=== PATIENT | male | born 1980 | race African-American/Black ===

== ENCOUNTER 2022-11-15 15:33 | Emergency (ER) | payer OTHER ==
[2022-11-15 16:37] LABS: Hematocrit 46.3 % (39.6-49.0); Lymphocytes % 21.5 % (15.3-44.8); MCV 92.6 fL (80-100); MPV 8.2 fL (7.6-11.3)
[2022-11-15 16:57] LABS: Albumin 3.9 g/dL (3.4-5.0); Bilirubin Total 0.6 mg/dL (0.2-1.0); Magnesium 2.1 mg/dL (1.6-2.4); Potassium 3.9 mmol/L (3.5-5.1); Protein, Total 8.6 g/dL (6.4-8.2); Troponin High Sensitivity 30.8 pg/mL (<58.9)
[2022-11-15] MEDS ORDERED: BACLOFEN 10 MG TAB PO ONE (17:00)
--- NOTE | 2022-11-15 17:04 | EDPHYS ---
Physician Documentation [facility] Name: Houston Joyner Age: 42 yrs Sex: Male : 1980 Arrival Date: 11/15/2022 Time: 15:35 Bed DX3 Private MD: [facility] ED Physician Edgardo Euceda HPI: 11/15 16:38 This 42 yrs old Black Male presents to ER via Wheelchair with complaints of unstable rt gait, Doesn't Feel Right. 16:38 Patient with prior history of CVA presents to the ED with an unsteadiness on his feet. rt The patient states that he ran out of his baclofen about 1 week ago. He states that he talked with physician who stated that the symptoms may occur as a withdrawal symptom of baclofen. The patient denies any pain at this time. He denies any new focal neurologic deficit, reporting that he is chronically weak on his left side from his prior stroke. Denies other acute complaints, symptoms are moderate in severity, no other aggravating or alleviating factors.. Historical: - Allergies: 15:57 NKDA; iw - PMHx: 15:57 Cerebrovascular accident; coronary atherosclerosis; Hypertensive disorder; Seizure; iw - PSHx: 15:57 Craniotomy; iw - Family history:: not pertinent, pertinent for. ROS: 16:38 Constitutional: Negative for fever, chills, and weight loss, Eyes: Negative for injury, rt pain, redness, and discharge, Cardiovascular: Negative for chest pain, palpitations, and edema, Respiratory: Negative for shortness of breath, cough, wheezing, and pleuritic chest pain, Abdomen/GI: Negative for abdominal pain, nausea, vomiting, diarrhea, and constipation, Skin: Negative for injury, rash, and discoloration, Psych: Negative for depression, anxiety, suicide ideation, homicidal ideation, and hallucinations. 16:38 Neuro: Positive for weakness, Negative for altered mental status. Exam: 16:38 ECG was reviewed by the Attending Physician. rt 16:38 Neuro: Contracture noted to the left hand, left-sided hemiparesis, reportedly old, there is a sensation deficit on the left side, left-sided facial droop. Strength and sensation otherwise intact.. Vital Signs: 15:54 BP 139 / 90; Pulse 92; Resp 16; Temp 98.5; Pulse Ox 100% on R/A; Weight 111.58 kg; iw Height 6 ft. 1 in. (185.42 cm); 15:54 Body Mass Index 32.46 (111.58 kg, 185.42 cm) iw MDM: 16:17 Patient medically screened. rt 17:05 Differential Diagnosis Dysrhythmia, CVA, electrolyte disturbance, baclofen withdrawal. rt Data reviewed: vital signs, nurses notes, lab test result(s), EKG. I considered the following discharge prescriptions or medication management in the emergency department Medications were administered in the Emergency Department. See MAR. Test considered but Not performed: CT: Symptoms are not consistent with an acute CVA, no new focal neurologic deficits, CT scan is not indicated.. ED course: Patient presents to the ED with difficulty in walking. Reports muscle spasticity. Patient has been off of his baclofen for several days. I believe that he is in a baclofen withdrawal, stable vital signs. Symptoms have resolved, patient is back to his baseline after 1 dose of baclofen. Will represcribe this. Patient has an appoint with his neurologist coming up, believe that he is stable for outpatient care to follow-up with neurologist as previously scheduled.. 11/15 16:17 Order name: CBC with Diff; Complete Time: 16:57 rt 11/15 16:17 Order name: CMP; Complete Time: 16:57 rt 11/15 16:17 Order name: Magnesium; Complete Time: 16:57 rt 11/15 16:17 Order name: EKG; Complete Time: 16:17 rt 11/15 16:17 Order name: Troponin High Sensitivity; Complete Time: 16:57 rt 11/15 16:17 Order name: EKG - Nurse/Tech; Complete Time: 16:35 rt EC:38 Rate is 84 beats/min. Rhythm is regular, Normal Sinus Rhythm with No ectopy. QRS [place] rt is Normal. [place] interval is normal. QRS interval is normal. QT interval is normal. No Q waves. T waves are Normal. No ST changes noted. Interpreted by me. Administered Medications: 16:55 Drug: Baclofen 10 mg Route: PO; jl7 Disposition Summary: 11/15/22 17:04 Discharge Ordered Location: Home rt Problem: new rt Symptoms: are resolved rt Condition: Stable rt Diagnosis - Baclofen withdrawal rt Followup: rt - With: Private Physician - When: 2 - 3 days - Reason: Discharge Instructions: - Discharge Summary Sheet rt - Muscle Cramps and Spasms rt - Spasticity rt Forms: - Medication Reconciliation Form rt - Thank You Letter rt - Antibiotic Education rt - Prescription Opioid Use rt Prescriptions: - Baclofen 10 mg Oral Tablet - take 1 tablet by ORAL route 3 times per day; 60 tablet; Refills: 0, Product rt Selection Permitted Signatures: Dispatcher [employer] Quyen Broussard, Nicola Hall RN, RN RN jl7 Edgardo Euceda MD MD rt
--- NOTE | 2022-11-15 17:04 | ER ---
Nurse's Notes [facility] Name: Houston Joyner Age: 42 yrs Sex: Male : 1980 Arrival Date: 11/15/2022 Time: 15:35 Bed DX3 Private MD: Eliseo Barker Diagnosis: Baclofen withdrawal Presentation: 11/15 15:54 Chief complaint: Patient states: my equilibrium has been off for a couple days, was on iw the phone with Dr. Blevins and they told me it might be because I stopped my baclofen a week ago, he was on baclofen for over a year , he ran out and he didn't go back to the doctor . He just left Dr. Barker's office , they told him to come here , he feels like he has to take his time getting up. Coronavirus screen: At this time, the client does not indicate any symptoms associated with coronavirus-19. Ebola Screen: Patient negative for fever greater than or equal to 101.5 degrees Fahrenheit, and additional compatible Ebola Virus Disease symptoms Patient denies exposure to infectious person. Patient denies travel to an Ebola-affected area in the 21 days before illness onset. No symptoms or risks identified at this time. Initial Sepsis Screen: Does the patient meet any 2 criteria? No. Patient's initial sepsis screen is negative. Does the patient have a suspected source of infection? No. Patient's initial sepsis screen is negative. Risk Assessment: Do you want to hurt yourself or someone else? Patient reports no desire to harm self or others. 15:54 Method Of Arrival: Wheelchair 15:54 Acuity: NE 3 iw Historical: - Allergies: 15:57 NKDA; iw - PMHx: 15:57 Cerebrovascular accident; coronary atherosclerosis; Hypertensive disorder; Seizure; iw - PSHx: 15:57 Craniotomy; iw - Family history:: not pertinent, pertinent for. Screenin:00 [facility] ED Fall Risk Assessment (Adult) History of falling in the last 3 months, jl7 including since admission No falls in past 3 months (0 pts) Confusion or Disorientation No (0 pts) Intoxicated or Sedated No (0 pts) Impaired Gait Yes (1 pt) Mobility Assist Device Used No (0 pt) Altered Elimination No (0 pt) Score/Fall Risk Level 0 - 2 = Low Risk Oriented to surroundings, Maintained a safe environment. Abuse screen: Denies threats or abuse. Denies injuries from another. Nutritional screening: No deficits noted. Tuberculosis screening: No symptoms or risk factors identified. Vital Signs: 15:54 BP 139 / 90; Pulse 92; Resp 16; Temp 98.5; Pulse Ox 100% on R/A; Weight 111.58 kg; iw Height 6 ft. 1 in. (185.42 cm); 15:54 Body Mass Index 32.46 (111.58 kg, 185.42 cm) ED Course: 15:35 Patient arrived in ED. am2 15:35 Eliseo Barker DO is Private Physician. am2 15:45 Edgardo Euceda MD is Attending Physician. rt 15:57 Triage completed. iw 16:00 Patient has correct armband on for positive identification. jl7 16:35 Troponin High Sensitivity Sent. bc6 16:35 Magnesium Sent. bc6 16:35 CMP Sent. bc6 16:35 CBC with Diff Sent. bc6 16:35 Initial lab(s) drawn, by me, sent to lab. EKG done, by ED staff. Inserted saline lock: bc6 20 gauge in right antecubital area, using aseptic technique. 16:55 Nicola Rao, RN is Primary Nurse. jl7 17:16 No provider procedures requiring assistance completed. IV discontinued, intact, jl7 bleeding controlled, No redness/swelling at site. Pressure dressing applied. Administered Medications: 16:55 Drug: Baclofen 10 mg Route: PO; jl7 Outcome: 17:04 Discharge ordered by MD. rt 17:16 Discharged to home ambulatory, with family. jl7 17:16 Condition: stable 17:16 Discharge instructions given to patient, family, Instructed on discharge instructions, follow up and referral plans. medication usage, Demonstrated understanding of instructions, follow-up care, medications, Prescriptions given X 1. 17:17 Patient left the ED. jl7 Signatures: Quyen Anand RN KINGA Nicola Rao RN RN jl7 Alvina Stark am2 Edgardo Euceda MD MD rt Jillian Acosta bc6
[2022-11-15 17:27] VITALS: BP 139/90; TEMP 98.5; O2SAT 100
== END 2022-11-15 17:17 | disposition home or self-care (01) ==
LOC: ER 15:33
DX: R53.1 Weakness (principal); F19.939 Other psychoactive substance use, unspecified with withdrawal, unspecified; I10 Essential (primary) hypertension; Z86.73 Personal history of transient ischemic attack (TIA), and cerebral infarction without residual deficits
CPT/HCPCS: 36415; 80053; 83735; 84484; 85025

== ENCOUNTER 2025-01-15 18:28 | Emergency (ER) | payer OTHER ==
--- NOTE | 2025-01-15 19:00 | EDPHYS ---
Physician Documentation [facility] Name: Houston Joyner Age: 44 yrs Sex: Male : 1980 Arrival Date: 01/15/2025 Time: 18:28 Bed 23 Private MD: ED Physician Edgardo Euceda HPI: 01/15 19:02 This 44 yrs old Black Male presents to ER via Ambulatory with complaints of Ear Pain, rt Congestion, Fever. 19:47 Patient presents to the ED with 3 days of right ear pain, mild nasal congestion. Has rt not taken anything for the pain. Denies other acute complaints at this time, symptoms are mild in severity, no other aggravating alleviating factors.. Historical: - Allergies: 18:34 NKDA; ll1 - PMHx: 18:34 Cerebrovascular accident; coronary atherosclerosis; Hypertensive disorder; Seizure; ll1 - PSHx: 18:34 Craniotomy; ll1 - Immunization history:: Adult Immunizations up to date. - Infectious Disease History:: Denies. - Social history:: Smoking status: Patient denies any tobacco usage or history of. - Family history:: not pertinent. ROS: 19:47 Constitutional: Negative for fever, chills, and weight loss, Cardiovascular: Negative rt for chest pain, palpitations, and edema, Respiratory: Negative for shortness of breath, cough, wheezing, and pleuritic chest pain, Skin: Negative for injury, rash, and discoloration, Neuro: Negative for headache, weakness, numbness, tingling, and seizure, 19:47 ENT: Positive for ear pain, Negative for Ear drainage, Exam: 19:47 Constitutional: This is a well developed, well nourished patient who is awake, alert, rt and in no acute distress. Chest/axilla: Normal chest wall appearance and motion. Nontender with no deformity. No lesions are appreciated. Cardiovascular: Regular rate and rhythm with a normal S1 and S2. No gallops, murmurs, or rubs. Normal PMI, no JVD. No pulse deficits. Respiratory: Lungs have equal breath sounds bilaterally, clear to auscultation and percussion. No rales, rhonchi or wheezes noted. No increased work of breathing, no retractions or nasal flaring. Abdomen/GI: Soft, non-tender, with normal bowel sounds. No distension or tympany. No guarding or rebound. No evidence of tenderness throughout. Skin: Warm, dry with normal turgor. Normal color with no rashes, no lesions, and no evidence of cellulitis. MS/ Extremity: Pulses equal, no cyanosis. Neurovascular intact. Full, normal range of motion. 19:47 ENT: Left TM is clear, right TM is bulging, edematous. EAC is within normal limits, pinna is within normal limits, no signs of OE, mastoiditis. Vital Signs: 18:38 BP 148 / 103; Pulse 83; Resp 17; Temp 98.9; Pulse Ox 100% ; Weight 116.57 kg; Height 6 ll1 ft. 1 in. ; Pain 0/10; 18:38 Body Mass Index 33.91 (116.57 kg, 185.42 cm) ll1 18:38 Pain Scale: Adult ll1 MDM: 18:51 Medical Screening Exam initiated rt 19:47 Differential diagnosis: otitis media, otitis externa, Viral syndrome. Data reviewed: rt vital signs, nurses notes. I considered the following discharge prescriptions or medication management in the emergency department Medications were administered in the Emergency Department. See MAR. Test considered but Not performed: CT: No clinical signs to suggest mastoiditis, CT scan is not indicated. Care significantly affected by the following chronic conditions: Previous CVA. Counseling: I had a detailed discussion with the patient and/or guardian regarding the historical points, exam findings, and any diagnostic results supporting the discharge/admit diagnosis, the need for outpatient follow up, to return to the emergency department if symptoms worsen or persist or if there are any questions or concerns that arise at home. Response to treatment: There is no appreciated change of the patient's symptoms at this time. Administered Medications: 19:05 Drug: Amoxicillin PO 875 mg PO once Route: PO; db 19:07 Follow up: Response: No adverse reaction db Disposition Summary: 01/15/25 18:59 Discharge Ordered Notes: Location: Home rt Problem: new rt Symptoms: are unchanged rt Condition: Stable rt Diagnosis - Acute serous otitis media, right ear rt Followup: rt - With: Private Physician - When: 2 - 3 days - Reason: Discharge Instructions: - Discharge Summary Sheet rt - Otitis Media, Adult rt Forms: - Medication Reconciliation Form rt - Antibiotic Education rt - Prescription Opioid Use rt - Patient Portal Instructions rt - Leadership Thank You Letter rt Prescriptions: - Amoxicillin 875 mg Oral Tablet - take 1 tablet ORAL route every 12 hours for 10 days; 20 tablet; Refills: 0, rt Product Selection Permitted Signatures: Denis Whitley RN RN ll1 Carmen Brown RN RN db Edgardo Euceda MD MD rt
--- NOTE | 2025-01-15 19:00 | ER ---
Nurse's Notes [facility] Name: Houston Joyner Age: 44 yrs Sex: Male : 1980 Arrival Date: 01/15/2025 Time: 18:28 Bed 23 Private MD: Diagnosis: Acute serous otitis media, right ear Presentation: 01/15 18:38 Chief complaint: Patient states: R ear pain, congestion, fever for 3 days. Coronavirus ll1 screen: Client denies travel out of the [place] in the last 14 days. Ebola Screen: Patient denies travel to an Ebola-affected area in the 21 days before illness onset. 18:38 Method Of Arrival: Ambulatory ll1 19:07 Initial Sepsis Screen: Does the patient meet any 2 criteria? No. Patient's initial db sepsis screen is negative. Does the patient have a suspected source of infection? No. Patient's initial sepsis screen is negative. Risk Assessment: Do you want to hurt yourself or someone else? Patient reports no desire to harm self or others. Onset of symptoms was January 15, 2025. 19:07 Acuity: NE 4 db Triage Assessment: 18:43 General: Appears in no apparent distress. Behavior is calm, cooperative, appropriate ll1 for age, Reports fever for fatigue for. Pain: Denies pain. EENT: Reports nasal congestion pain in right ear. Historical: - Allergies: 18:34 NKDA; ll1 - PMHx: 18:34 Cerebrovascular accident; coronary atherosclerosis; Hypertensive disorder; Seizure; ll1 - PSHx: 18:34 Craniotomy; ll1 - Immunization history:: Adult Immunizations up to date. - Infectious Disease History:: Denies. - Social history:: Smoking status: Patient denies any tobacco usage or history of. - Family history:: not pertinent. Screenin:06 [facility] ED Fall Risk Assessment (Adult) History of falling in the last 3 months, db including since admission No falls in past 3 months (0 pts) Confusion or Disorientation No (0 pts) Intoxicated or Sedated No (0 pts) Impaired Gait No (0 pts) Mobility Assist Device Used No (0 pt) Altered Elimination No (0 pt) Score/Fall Risk Level 0 - 2 = Low Risk Oriented to surroundings, Maintained a safe environment. Abuse screen: Denies threats or abuse. Denies injuries from another. Nutritional screening: No deficits noted. Tuberculosis screening: No symptoms or risk factors identified. Assessment: 18:53 Reassessment: Patient appears in no apparent distress at this time. Patient and/or db family updated on plan of care and expected duration. Pain level reassessed. Patient is alert, oriented x 3, equal unlabored respirations, skin warm/dry/pink. 18:53 Reassessment: DR. CHEEMA AT PATIENT BEDSIDE. db 19:05 General: Appears in no apparent distress. comfortable, Behavior is calm, cooperative. db Neuro: Level of Consciousness is awake, alert, obeys commands, Oriented to person, place, time, situation. EENT: Reports pain in right ear. Vital Signs: 18:38 BP 148 / 103; Pulse 83; Resp 17; Temp 98.9; Pulse Ox 100% ; Weight 116.57 kg; Height 6 ll1 ft. 1 in. ; Pain 0/10; 18:38 Body Mass Index 33.91 (116.57 kg, 185.42 cm) ll1 18:38 Pain Scale: Adult ll1 ED Course: 18:33 Patient arrived in ED. gm2 18:34 Arm band placed on. ll1 18:36 Edgardo Cheema MD is Attending Physician. rt 18:53 Patient has correct armband on for positive identification. Bed in low position. Call db light in reach. 18:58 Carmen Brown, RN is Primary Nurse. db 19:06 Provided Education on: DISCHARGE AND FOLLOWUP. db 19:06 No provider procedures requiring assistance completed. Patient did not have IV access db during this emergency room visit. 19:07 Triage completed. db Administered Medications: 19:05 Drug: Amoxicillin PO 875 mg PO once Route: PO; db 19:07 Follow up: Response: No adverse reaction db Medication: 19:06 VIS not applicable for this client. db Outcome: 18:59 Discharge ordered by MD. rt 19:06 Discharged to home ambulatory, with family, db 19:06 Condition: stable 19:06 Discharge instructions given to patient, family, Instructed on discharge instructions, follow up and referral plans. Prescriptions given X 1, 19:09 Patient left the ED. db Signatures: Denis Whitley RN RN ll1 Carmen Brown, RN RN db Edgardo Cheema MD MD rt Cathy Quintero gm2 Corrections: (The following items were deleted from the chart) 19:06 18:53 Reassessment: Patient appears in no apparent distress at this time. Patient db and/or family updated on plan of care and expected duration. Pain level reassessed. Patient is alert, oriented x 3, equal unlabored respirations, skin warm/dry/pink. db
[2025-01-15] MEDS ORDERED: AMOX/K CLAV 875 MG TAB ONE (19:04)
[2025-01-15 19:27] VITALS: BP 148/103; TEMP 98.9; O2SAT 100
== END 2025-01-15 19:09 | disposition home or self-care (01) ==
LOC: ER 18:28
DX: H65.01 Acute serous otitis media, right ear (principal)
CPT/HCPCS: 99283